=== PATIENT | female | born 1970 | race African-American/Black ===

== ENCOUNTER 2020-03-14 16:31 | Inpatient (IN) | payer OTHER ==
[2020-03-14 17:31] VITALS: BMI 18.8
[2020-03-14] MEDS ORDERED: guaiFENesin 200 MG/10 ML 10 ML UNIT-DOSE CUPS PO PRN (19:42)
[2020-03-14] MEDS ORDERED: MAGNESIUM CITRATE 300 ML BOTTLE PO PRN (19:42)
[2020-03-14] MEDS ORDERED: MAGNESIUM HYDROX 2400MG/30ML ORAL SUSPENSION 30 ML CUP PO PRN (19:42)
[2020-03-14] MEDS ORDERED: LOPERAMIDE HCL 2 MG CAPSULE PO PRN (19:42)
[2020-03-14] MEDS ORDERED: P-EPHED 60MG/TRIPROLIDI 2.5MG TABLET PO PRN (19:42)
[2020-03-14] MEDS ORDERED: MAG HYDROX/AL HYDROX/SIMETH 30 ML UNIT-DOSE CUP PO PRN (19:42)
[2020-03-14] MEDS ORDERED: ACETAMINOPHEN 325 MG TABLET (FP) PO PRN (19:42)
[2020-03-14] MEDS ORDERED: TUBERCULIN PPD 5 TU/0.1ML VIAL ID ONE ×3 (21:04→23:34)
[2020-03-14] MEDS: MELATONIN 5 MG TABLETS PO SCH (21:34)
[2020-03-14] MEDS: THIAMINE HCL 100 MG TABLET (FP) PO SCH (21:34)
[2020-03-15] MEDS: PRENATAL VITAMINS W/ FOLIC ACID TABLET (FP) PO SCH (09:11)
[2020-03-15] MEDS: NICOTINE 21 MG/24 HOURS TOPICAL PATCH TD SCH (09:11)
[2020-03-15] MEDS: NICOTINE POLACRILEX 2 MG GUM BC PRN (09:12)
[2020-03-15 10:10] LABS: POTASSIUM 4.4 mmol/L (3.5-5.1)
[2020-03-15 10:12] LABS: BLOOD UREA NITROGEN 16.3 mg/dL (7-18); CALCIUM 8.3 mg/dL (8.5-10.1)
[2020-03-15 10:13] LABS: HEMATOCRIT 42.6 % (32.4-45.2); HEMOGLOBIN 13.6 GM/dL (10.7-15.3); MCH 29.3 pg (25.7-33.7); MCHC 31.9 g/dl (32.0-36.0); MEAN CELL VOLUME 91.6 fl (80-96); MEAN PLT VOLUME 9.5 fl (7.5-11.1); PLATELET COUNT 275 K/MM3 (134-434); RBC 4.65 M/mm3 (3.60-5.2); RDW 14.3 % (11.6-15.6); WHITE BLOOD COUNT 6.7 K/mm3 (4.0-10.0)
[2020-03-15 10:15] LABS: CREATININE 0.8 mg/dL (0.55-1.3)
[2020-03-15 10:18] LABS: BILIRUBIN,TOTAL 0.2 mg/dL (0.2-1); TOT PROT 6.4 g/dl (6.4-8.2)
[2020-03-15 10:27] LABS: SICKLE CELL SCREEN NEGATIVE (NEGATIVE)
[2020-03-15] MEDS ORDERED: FLU VACCINE (FLULAVAL) PF 60 MCG/0.5 ML SYRINGE 2020-2021 IM ONE (12:00)
[2020-03-15] MEDS ORDERED: PNEUMOC 13-VAL CONJ-DIP CRM/PF 0.5 ML DISP.SYRIN IM ONE (12:00)
[2020-03-15] MEDS ORDERED: PNEUMOCOCCAL 23 VACCINE 0.5 ML VIAL IM ONE (12:00)
[2020-03-15] MEDS: IBUPROFEN 400 MG TABLET (FP) PO PRN (15:26)
[2020-03-15] MEDS: MELATONIN 5 MG TABLETS PO SCH (21:32)
[2020-03-15] MEDS: THIAMINE HCL 100 MG TABLET (FP) PO SCH (21:32)
[2020-03-15] MEDS: QUEtiapine FUMARATE 100 MG TABLET (FP) PO SCH (21:32)
[2020-03-16] MEDS: NICOTINE 21 MG/24 HOURS TOPICAL PATCH TD SCH (10:32)
[2020-03-16] MEDS: IBUPROFEN 400 MG TABLET (FP) PO PRN (10:34)
[2020-03-16] MEDS: PRENATAL VITAMINS W/ FOLIC ACID TABLET (FP) PO SCH (10:34)
[2020-03-16] MEDS: QUEtiapine FUMARATE 100 MG TABLET (FP) PO SCH (22:06)
[2020-03-16] MEDS: MELATONIN 5 MG TABLETS PO SCH (22:06)
[2020-03-16] MEDS: THIAMINE HCL 100 MG TABLET (FP) PO SCH (22:06)
[2020-03-17 07:01] VITALS: BP 134/93; PULSE 90; TEMP 98.1
[2020-03-17] MEDS: PRENATAL VITAMINS W/ FOLIC ACID TABLET (FP) PO SCH (10:15)
[2020-03-17] MEDS: NICOTINE 21 MG/24 HOURS TOPICAL PATCH TD SCH (10:15)
[2020-03-17] MEDS: IBUPROFEN 400 MG TABLET (FP) PO PRN (10:16)
[2020-03-17] MEDS: NICOTINE POLACRILEX 2 MG GUM BC PRN (10:17)
== END 2020-03-17 15:20 | disposition left against medical advice (07) | DRG 770 ==
LOC: YASAS 16:31 → Y3E 19:40 → Y3W 03-15 15:18
PROVIDERS: ADMIT Allergy & Immunology; ATTEND Allergy & Immunology
PROC: HZ42ZZZ Group Counseling for Substance Abuse Treatment, Cognitive-Behavioral (ICD-10-PCS; principal; 2020-03-14)
DX: F14.20 Cocaine dependence, uncomplicated (principal); F12.20 Cannabis dependence, uncomplicated; F17.210 Nicotine dependence, cigarettes, uncomplicated; F31.9 Bipolar disorder, unspecified; F39 Unspecified mood [affective] disorder; Z56.0 Unemployment, unspecified; Z59.0 Homelessness
CPT/HCPCS: 36415; 80053; 81025; 85027; 85660; 86780; 90732; 93005; 93010; C9803; G0008; G0009; Q2036; U0003

== ENCOUNTER 2020-04-08 15:00 | Inpatient (IN) | payer OTHER ==
[2020-04-08 21:06] VITALS: BMI 20.8
[2020-04-08] MEDS ORDERED: MAGNESIUM HYDROX 2400MG/30ML ORAL SUSPENSION 30 ML CUP PO PRN (21:22)
[2020-04-08] MEDS ORDERED: guaiFENesin 200 MG/10 ML 10 ML UNIT-DOSE CUPS PO PRN (21:22)
[2020-04-08] MEDS ORDERED: MAG HYDROX/AL HYDROX/SIMETH 30 ML UNIT-DOSE CUP PO PRN (21:22)
[2020-04-08] MEDS ORDERED: MAGNESIUM CITRATE 300 ML BOTTLE PO PRN (21:22)
[2020-04-08] MEDS ORDERED: NICOTINE POLACRILEX 4 MG GUM BC PRN (21:22)
[2020-04-08] MEDS ORDERED: LOPERAMIDE HCL 2 MG CAPSULE PO PRN (21:22)
[2020-04-08] MEDS ORDERED: P-EPHED 60MG/TRIPROLIDI 2.5MG TABLET PO PRN (21:22)
[2020-04-08] MEDS ORDERED: ACETAMINOPHEN 325 MG TABLET (FP) PO PRN (21:22)
[2020-04-08] MEDS ORDERED: hydrOXYzine PAMOATE 25 MG CAPSULE (FP) PO PRN (21:22)
[2020-04-08] MEDS: THIAMINE HCL 100 MG TABLET (FP) PO SCH (22:59)
[2020-04-08] MEDS: MELATONIN 5 MG TABLETS PO SCH (22:59)
[2020-04-08] MEDS ORDERED: MASKS NR ONE (23:00)
[2020-04-08] MEDS ORDERED: TUBERCULIN PPD 5 TU/0.1ML VIAL ID ONE (23:35)
[2020-04-09] MEDS: NICOTINE 21 MG/24 HOURS TOPICAL PATCH TD SCH (09:23)
[2020-04-09] MEDS: PRENATAL VITAMINS W/ FOLIC ACID TABLET (FP) PO SCH (09:23)
[2020-04-09 10:58] LABS: HEMATOCRIT 42.4 % (32.4-45.2); HEMOGLOBIN 13.8 GM/dL (10.7-15.3); MCH 29.8 pg (25.7-33.7); MCHC 32.5 g/dl (32.0-36.0); MEAN CELL VOLUME 91.4 fl (80-96); MEAN PLT VOLUME 9.3 fl (7.5-11.1); PLATELET COUNT 247 K/MM3 (134-434); RBC 4.64 M/mm3 (3.60-5.2); RDW 14.4 % (11.6-15.6); WHITE BLOOD COUNT 6.6 K/mm3 (4.0-10.0)
[2020-04-09 11:30] LABS: BLOOD UREA NITROGEN 13.4 mg/dL (7-18); CREATININE 0.7 mg/dL (0.55-1.3)
[2020-04-09 11:32] LABS: TOT PROT 6.4 g/dl (6.4-8.2)
[2020-04-09 11:35] LABS: BILIRUBIN,TOTAL 1.4 mg/dL (0.2-1)
[2020-04-09 11:38] LABS: SICKLE CELL SCREEN NEGATIVE (NEGATIVE)
[2020-04-09 11:47] LABS: PH,URINE 5.5 (5.0-8.0); URINE APPEARANCE Clear; URINE BILIRUBIN Negative (NEGATIVE); URINE COLOR Yellow; URINE GLUCOSE (UA) Negative (NEGATIVE); URINE KETONE Negative (NEGATIVE); URINE LEUK ESTERASE Negative (NEGATIVE); URINE NITRITE Negative (NEGATIVE); URINE PROTEIN Negative (NEGATIVE); URINE UROBILINOGEN 0.2 mg/dL (0.2-1.0)
[2020-04-09 14:07] LABS: EPI CELLS 14.7 /uL (0-25.1); HYALINE CASTS 0.51 /uL (0-3.1); URINE BACTERIA 99.3 /uL (0-1359); URINE RBC 8.9 /uL (0-23.9); URINE WBC 4.1 /uL (0-25.8)
[2020-04-09] MEDS ORDERED: PT OWN MED DRAWER 7, Y5N ONE (19:03)
[2020-04-09] MEDS: THIAMINE HCL 100 MG TABLET (FP) PO SCH (21:11)
[2020-04-09] MEDS: MELATONIN 5 MG TABLETS PO SCH (21:11)
[2020-04-10] MEDS: PRENATAL VITAMINS W/ FOLIC ACID TABLET (FP) PO SCH (10:23)
[2020-04-10] MEDS: NICOTINE 21 MG/24 HOURS TOPICAL PATCH TD SCH (10:23)
[2020-04-10] MEDS: IBUPROFEN 400 MG TABLET (FP) PO PRN (10:24)
[2020-04-10] MEDS: THIAMINE HCL 100 MG TABLET (FP) PO SCH (21:19)
[2020-04-10] MEDS: MELATONIN 5 MG TABLETS PO SCH (21:19)
[2020-04-11] MEDS: PRENATAL VITAMINS W/ FOLIC ACID TABLET (FP) PO SCH (09:27)
[2020-04-11] MEDS: NICOTINE 21 MG/24 HOURS TOPICAL PATCH TD SCH (09:27)
[2020-04-11] MEDS ORDERED: PT OWN MED DRAWER 7, Y5N ONE ×3 (10:05→19:18)
[2020-04-11] MEDS: IBUPROFEN 400 MG TABLET (FP) PO PRN ×2 (12:08→20:04)
[2020-04-11] MEDS: MELATONIN 5 MG TABLETS PO SCH (21:00)
[2020-04-11] MEDS: THIAMINE HCL 100 MG TABLET (FP) PO SCH (21:00)
[2020-04-12] MEDS: NICOTINE 21 MG/24 HOURS TOPICAL PATCH TD SCH (09:35)
[2020-04-12] MEDS: PRENATAL VITAMINS W/ FOLIC ACID TABLET (FP) PO SCH (09:36)
[2020-04-12] MEDS ORDERED: PT OWN MED DRAWER 7, Y5N ONE ×3 (09:52→18:38)
[2020-04-12] MEDS: IBUPROFEN 400 MG TABLET (FP) PO PRN (15:28)
[2020-04-12] MEDS: THIAMINE HCL 100 MG TABLET (FP) PO SCH (20:59)
[2020-04-12] MEDS: MELATONIN 5 MG TABLETS PO SCH (20:59)
[2020-04-13] MEDS: IBUPROFEN 400 MG TABLET (FP) PO PRN (09:34)
[2020-04-13] MEDS: NICOTINE 21 MG/24 HOURS TOPICAL PATCH TD SCH (09:34)
[2020-04-13] MEDS: PRENATAL VITAMINS W/ FOLIC ACID TABLET (FP) PO SCH (09:34)
[2020-04-13] MEDS ORDERED: PT OWN MED DRAWER 7, Y5N ONE ×2 (20:04→22:45)
[2020-04-13] MEDS: THIAMINE HCL 100 MG TABLET (FP) PO SCH (21:01)
[2020-04-13] MEDS: MELATONIN 5 MG TABLETS PO SCH (21:01)
[2020-04-14] MEDS: PRENATAL VITAMINS W/ FOLIC ACID TABLET (FP) PO SCH (09:34)
[2020-04-14] MEDS: NICOTINE 21 MG/24 HOURS TOPICAL PATCH TD SCH (09:34)
[2020-04-14] MEDS: IBUPROFEN 400 MG TABLET (FP) PO PRN ×2 (09:34→15:44)
[2020-04-14] MEDS ORDERED: PT OWN MED DRAWER 7, Y5N ONE ×2 (15:33→19:21)
[2020-04-14] MEDS: THIAMINE HCL 100 MG TABLET (FP) PO SCH (21:05)
[2020-04-14] MEDS: MELATONIN 5 MG TABLETS PO SCH (21:05)
[2020-04-15] MEDS: IBUPROFEN 400 MG TABLET (FP) PO PRN (09:13)
[2020-04-15] MEDS: PRENATAL VITAMINS W/ FOLIC ACID TABLET (FP) PO SCH (09:14)
[2020-04-15] MEDS: NICOTINE 21 MG/24 HOURS TOPICAL PATCH TD SCH (09:44)
[2020-04-15] MEDS ORDERED: PT OWN MED DRAWER 7, Y5N ONE ×3 (10:11→19:56)
[2020-04-15] MEDS: MELATONIN 5 MG TABLETS PO SCH (21:01)
[2020-04-15] MEDS: THIAMINE HCL 100 MG TABLET (FP) PO SCH (21:01)
[2020-04-16 06:48] VITALS: BP 115/75; PULSE 90; TEMP 97.4
[2020-04-16] MEDS: PRENATAL VITAMINS W/ FOLIC ACID TABLET (FP) PO SCH (09:31)
[2020-04-16] MEDS: IBUPROFEN 400 MG TABLET (FP) PO PRN (09:31)
[2020-04-16] MEDS: NICOTINE 21 MG/24 HOURS TOPICAL PATCH TD SCH (12:00)
[2020-04-16] MEDS ORDERED: PT OWN MED DRAWER 7, Y5N ONE (18:50)
== END 2020-04-16 19:13 | disposition left against medical advice (07) | DRG 770 ==
LOC: YASAS 15:00 → Y3E 21:17
PROVIDERS: ADMIT Allergy & Immunology; ATTEND Allergy & Immunology
PROC: HZ42ZZZ Group Counseling for Substance Abuse Treatment, Cognitive-Behavioral (ICD-10-PCS; principal; 2020-04-08)
DX: F14.20 Cocaine dependence, uncomplicated (principal); F12.20 Cannabis dependence, uncomplicated; F17.210 Nicotine dependence, cigarettes, uncomplicated; F31.70 Bipolar disorder, currently in remission, most recent episode unspecified; F39 Unspecified mood [affective] disorder; F19.24 Other psychoactive substance dependence with psychoactive substance-induced mood disorder; Z56.0 Unemployment, unspecified
CPT/HCPCS: 36415; 80053; 81003; 81025; 85027; 85660; 86780; C9803; U0003